=== PATIENT | female | born 1980 | race Caucasian/White ===

== ENCOUNTER 2017-07-09 07:11 | Inpatient (IN) | payer BC ==
[~2017-07-09] VITALS: Ht 162.7 cm; Wt 85.0 kg
[~2017-07-09 07:11] MED LIST: COLACE 100100 MG/CAP PO; MOTRIN 800800 MG/TAB PO; PERCOCET 325 MG1 TA2 PO; ZANTAC 150MG T150 MG PO
[2017-08-24] VITALS (19 sets, daily range): BP systolic 91–135; BP diastolic 54–90; PULSE 83–109; TEMP 97.7–98.2
[2017-08-24] MEDS ORDERED: PRENATAL (11:34)
[2017-08-24 11:55] LABS: BASO % 0.2 % (0.0-2.0); EOS % 0.3 % (0-4.0); GRAN # 4.2 (1.4-6.5); GRAN % 72.5 % (42.2-75.2); HEMATOCRIT 33.3 % (37.0-47.0); HEMOGLOBIN 11.6 g/dl (12.5-16.0); LYMPH # 1.1 (1.2-3.4); LYMPH % 18.2 % (20.0-51.0); MEAN CELL VOLUME 95 fl (80.0-100.0); MEAN CORPUSCULAR HEMOGLOBIN 33 pg (27.0-31.0); MEAN CORPUSCULAR HGB CONC 35 g/dl (33.0-37.0); MONO # 0.5 (0.1-0.6); MONO % 8.1 % (1.7-9.3); PLATELET COUNT 146 K/mm3 (130-400); REDCELL DISTRIBUTION WIDTH-CV 13.3 % (11.5-14.5); WHITE BLOOD COUNT 5.8 K/mm3 (4.8-10.8)
[2017-08-25 00:45] VITALS: BP 112/73; PULSE 82; TEMP 97.8
[2017-08-25 03:15] VITALS: BP 114/81; PULSE 91; TEMP 98
[2017-08-25 08:15] VITALS: BP 117/80; PULSE 100; TEMP 97.8
[2017-08-25] MEDS ORDERED: IBU800 M1 PO (08:35)
[2017-08-25] MEDS ORDERED: PERCOCET 325 MG1 TA2 PO (08:36)
[2017-08-25 16:40] VITALS: BP 130/78; PULSE 97; TEMP 98.5
[2017-08-25 20:30] VITALS: BP 124/80; PULSE 96; TEMP 99.2
[2017-08-26 07:30] VITALS: BP 130/79; PULSE 98; TEMP 98.4
[2017-08-26 16:37] VITALS: BP 123/78; PULSE 93; TEMP 98.1
[2017-08-26 18:45] VITALS: BP 126/77; PULSE 95; TEMP 98.1
== END 2017-08-26 20:20 | disposition home or self-care (01) | DRG 766 ==
LOC: OB 08-24 09:48 → LDRO 08-29 07:11 → EDSTATUS 08-29 09:18 → OB 08-29 09:19
PROVIDERS: Obstetrics & Gynecology
PROC: 10D00Z1 Extraction of Products of Conception, Low, Open Approach (ICD-10-PCS; principal; 2017-08-24)
DX: O34.211 Maternal care for low transverse scar from previous cesarean delivery (principal); N85.8 Other specified noninflammatory disorders of uterus; O34.13 Maternal care for benign tumor of corpus uteri, third trimester; D25.9 Leiomyoma of uterus, unspecified; Z3A.39 39 weeks gestation of pregnancy; Z37.0 Single live birth
CPT/HCPCS: J0171; J0690; J1885; J2270; J2370; J2405; J2590; J7120

== ENCOUNTER → 2017-07-15 | Outpatient (REF) | LOC: WSOH 09:30 | DX: Z02.89 Encounter for other administrative examinations (principal) ==

== ENCOUNTER 2019-08-21 10:31 | Inpatient (IN) | payer BC ==
[~2019-08-21] VITALS: Ht 162.6 cm; Wt 89.5 kg
[2019-08-21] VITALS (18 sets, daily range): BP systolic 101–140; BP diastolic 65–82; PULSE 84–106; TEMP 97.3–98
[~2019-08-21 10:31] MED LIST changes: +IBU800 M1 PO; +PRENATAL
--- NOTE | 2019-08-21 10:35 | NUR ---
Patient ambulatory onto unit with at side for scheduled section. Patient to room, changes into gown, plan of care discussed. Patient reports good movement and irregular contractions. Denies vaginal bleeding or leaking of fluid. Denies any medical or complications. EFMs on, VS taken. IV started to right hand, routine labs drawn. LR infusing per orders. Consents signed. Assessment completed.
[2019-08-21] MEDS ORDERED: ZANTAC 150MG T150 MG PO (11:00)
[2019-08-21 11:05] LABS: BASO % 0.3 % (0.0-2.0); EOS % 0.3 % (0-4.0); GRAN # 3.9 (1.4-6.5); HEMATOCRIT 35.2 % (37.0-47.0); HEMOGLOBIN 12.1 g/dl (12.5-16.0); LYMPH # 1.3 (1.2-3.4); LYMPH % 23.3 % (20.0-51.0); MEAN CELL VOLUME 94 fl (80.0-100.0); MEAN CORPUSCULAR HEMOGLOBIN 32 pg (27.0-31.0); MEAN CORPUSCULAR HGB CONC 34 g/dl (33.0-37.0); MONO # 0.4 (0.1-0.6); MONO % 6.6 % (1.7-9.3); PLATELET COUNT 142 K/mm3 (130-400); RED BLOOD COUNT 3.76 M/mm3 (4.10-5.30); REDCELL DISTRIBUTION WIDTH-CV 13.6 % (11.5-14.5)
--- NOTE | 2019-08-21 15:30 | NUR ---
Rests in bed, alert. Pad changed, and doyle-care given.
[2019-08-22] VITALS: BP 116/77; PULSE 90
[2019-08-22 05:00] VITALS: BP 130/84; PULSE 97; TEMP 98.5
[2019-08-22 08:00] VITALS: BP 127/76; PULSE 98; TEMP 98.1
[2019-08-22] MEDS ORDERED: PERCOCET 325 MG1 TA2 PO (08:13)
[2019-08-22] MEDS ORDERED: MOTRIN 800800 MG/TAB PO (08:13)
[2019-08-22 12:30] VITALS: BP 133/83; PULSE 93; TEMP 97.8
[2019-08-22 16:08] VITALS: BP 122/66; PULSE 85; TEMP 98.7
[2019-08-22 19:30] VITALS: BP 132/80; PULSE 94; TEMP 98.9
[2019-08-23 07:45] VITALS: BP 133/92; PULSE 104; TEMP 98.4
== END 2019-08-23 12:20 | disposition home or self-care (01) | DRG 788 ==
LOC: OB 10:31 → LDR 13:06 → OB 08-23 12:20
PROVIDERS: ADMIT Obstetrics & Gynecology
PROC: 10D00Z1 Extraction of Products of Conception, Low, Open Approach (ICD-10-PCS; principal; 2019-08-21)
DX: O34.211 Maternal care for low transverse scar from previous cesarean delivery (principal); Z3A.39 39 weeks gestation of pregnancy; Z37.0 Single live birth
CPT/HCPCS: J0690; J1885; J2175; J2270; J2370; J2405; J2590; J7120

== ENCOUNTER 2023-03-12 10:25 | Day surgery (SDC) | payer OTHER ==
[~2023-03-12] VITALS: Ht 162.6 cm; Wt 88.0 kg
[2023-03-12] MEDS ORDERED: ESTARYLLA 35 MC1 TAB PO (11:01)
[2023-03-12 11:32] VITALS: BP 127/89; PULSE 100; TEMP 98.2
[2023-03-12 13:27] VITALS: BP 124/82; PULSE 105; TEMP 98.2
[2023-03-12] MEDS ORDERED: NORCO 325 MG-51 TAB PO (13:30)
[2023-03-12 14:00] VITALS: BP 118/73; PULSE 87
--- NOTE | 2023-03-12 14:30 | NUR ---
1327-PATIENT ARRIVED VIA CART, REPORT OBTAINED FROM MONICA LEZAMA. VITAL SIGNS TAKEN ON ARRIVAL, VSS. PATIENT DENIES PAIN, C/O SLIGHT NAUSEA. TO CONTINUE TO MONITOR 1345-PATIENT GIVEN ICE CHIPS, COOL TOWEL PLACED ON FACE, VSS. PATIENT REPORTS NAUSEA PERSISTS WITH ICE CHIPS. 1354-DISCHARGE INSTRUCTIONS REVIEWED WITH PT AND SPOUSE AT BEDSIDE, QUESTIONS ANSWERED. 1420-PATIENT DENIES PAIN, NAUSEA IMPROVED. PATIENT ASSISTED TO STANDING POSITION WITH SBA, REPORTS SLIGHT NAUSEA WITH MOTION BUT TOLERABLE. PATIENT DRESSED WITH HELP OF SPOUSE. IV CATHETER DISCONTINUED, CATHETER TIP INTACT. PRESSURE HELD AND BANDAGE APPLIED. 1425-PATIENT DISCHARGED HOME VIA WHEELCHAIR TO [facility] ACCOMPANIED BY SPOUSE, ALL BELONGINGS WITH PT AT TIME OF DISCHARGE
== END 2023-03-12 14:25 | disposition home or self-care (01) ==
LOC: SDCO 10:25
DX: M79.89 Other specified soft tissue disorders (principal)
CPT/HCPCS: J0690; J2405; J2704; J3010; J7120

== ENCOUNTER → 2024-01-16 | Outpatient (CLI) | payer OTHER ==
[~2024-01-16] MED LIST changes: +ESTARYLLA 35 MC1 TAB PO; +NORCO 325 MG-51 TAB PO
== END ==
LOC: MC.RAD 11:36
DX: Z12.31 Encounter for screening mammogram for malignant neoplasm of breast (principal)